=== PATIENT | female | born 1950 | race Caucasian/White ===

== ENCOUNTER 2021-04-30 11:15 | Emergency (ER) | payer BC ==
[~2021-04-30] VITALS: Ht 152.4 cm; Wt 85.7 kg
[2021-04-30] MEDS ORDERED: CASIRIVIMAB/IMDEVIMAB 10 ML in SODIUM CHLORIDE 0.9% 100 ML IV ONE (11:45)
== END 2021-04-30 12:57 | disposition home or self-care (01) ==
LOC: ER 11:38
DX: R06.02 Shortness of breath (principal); R05 Cough; U07.1 COVID-19; I10 Essential (primary) hypertension
CPT/HCPCS: 99283